=== PATIENT | female | born 1990 | race Caucasian/White ===

== ENCOUNTER 2022-12-20 20:31 | Emergency (ER) | payer OTHER ==
[~2022-12-20] VITALS: Ht 167.6 cm; Wt 53.1 kg
[~2022-12-20 20:31] MED LIST: ACYC400 PO; ASPI325 PO; B/C; BACL10 PO; CEPH500 PO; CLOP75 PO; CYCL10 PO; Cleocin HCl300 MG PO; Colace100 MG PO; DOCU100 PO; GABA100; GABA300 PO; HYDACE10B PO; HYDMOR2 PO; IBUP600 PO; LEVFLO500 PO; Morphine Sulfat30 M1 PO; NAPR500 PO; Naprosyn500 MG PO; Norco 5-325 Ta1 EACH PO; ONDA4ODT MM; OXYACE5T; PROCODE120 PO; PROM25 PO; RXHYD5325 PO; SENN187 PO; SULTRIDS PO
== END 2022-12-21 00:25 | disposition home or self-care (01) ==
LOC: ER 20:31
DX: K94.23 Gastrostomy malfunction (principal); Z91.010 Allergy to peanuts; Z88.0 Allergy status to penicillin; Z88.5 Allergy status to narcotic agent; Z88.8 Allergy status to other drugs, medicaments and biological substances; Z79.899 Other long term (current) drug therapy; Z79.82 Long term (current) use of aspirin; Z79.01 Long term (current) use of anticoagulants; Z87.891 Personal history of nicotine dependence
CPT/HCPCS: 71045; 99283-25